=== PATIENT | female | born 1950 | race Caucasian/White ===

== ENCOUNTER 2024-03-14 15:46 | Outpatient (CLI) | payer MEDICARE, SELFPAY | END 2024-03-14 15:47 | disposition home or self-care (01) | PROVIDERS: Visit Provider Physician Assistant Medical | DX: I10 Essential (primary) hypertension (principal); R32 Unspecified urinary incontinence; F32.A Depression, unspecified | CPT/HCPCS: 80053; 84443 ==

== ENCOUNTER 2024-03-15 12:59 | Outpatient (CLI) | payer MEDICARE, SELFPAY | END 2024-03-15 13:00 | disposition home or self-care (01) | LOC: NFLDREF 04-03 12:25 | PROVIDERS: Visit Provider Physician Assistant Medical | DX: R15.9 Full incontinence of feces (principal) | CPT/HCPCS: 87338 ==

== ENCOUNTER 2024-03-22 10:07 | Outpatient (CLI) | payer MEDICARE, SELFPAY ==
--- NOTE | 2024-03-22 11:00 | CRLHL7_ITS ---
For Patients: As a result of the Cures Act, medical imaging exams and procedure reports are released immediately into your electronic medical record. You may view this report before your referring provider. If you have questions, please contact your health care provider. INDICATION: Left lower quadrant abdominal pain; history of bowel incontinence; IBS COMPARISON: None. TECHNIQUE: CT abdomen and pelvis with intravenous contrast; coronal and sagittal reformats. FINDINGS: No abnormal nodular densities through the lung bases. No evidence of pleural effusion. Normal size cardiac silhouette without any evidence of pericardial effusion. No focal hepatic or splenic abnormality. No pancreatic pathology. Gallbladder is unremarkable. No adrenal pathology. No kidney stones or obstructive uropathy. 1.4 cm cortical cyst right kidney. No retroperitoneal lymphadenopathy. No evidence of abdominal or pelvic ascites. Status post hysterectomy. CT of the pelvis is unremarkable. 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 IMPRESSION: Status post hysterectomy. Negative CT abdomen and pelvis with intravenous contrast otherwise. Please note that all CT scans at this facility use dose modulation, iterative reconstruction, and/or weight-based dosing when appropriate to reduce radiation dose to as low as reasonably achievable. Dictated by Zamzam Palacios MD @ 03/23/2024 1:04:21 PM (Electronically Signed)
--- NOTE | 2024-03-22 11:30 | CRLHL7_ITS ---
For Patients: As a result of the Century Cures Act, medical imaging exams and procedure reports are released immediately into your electronic medical record. You may view this report before your referring provider. If you have questions, please contact your health care provider. INDICATION: Smoking history; low-dose screening chest CT. COMPARISON: None. Technique: Low-dose screening chest CT. FINDINGS: No abnormal intrapulmonary nodule densities. No abnormal mediastinal or hilar lymphadenopathy. Coronary artery calcifications. Normal size cardiac silhouette without any pericardial fusion. No evidence of pleural effusion or chest wall pathology. Limited CT through the upper abdomen is unremarkable. IMPRESSION: Lung rads category 1; low-dose screening chest CT in 12 months duration suggested. Please note that all CT scans at this facility use dose modulation, iterative reconstruction, and/or weight-based dosing when appropriate to reduce radiation dose to as low as reasonably achievable. Dictated by Zamzam Palacios MD @ 03/23/2024 12:56:43 PM (Electronically Signed)
== END 2024-03-22 10:08 | disposition home or self-care (01) ==
LOC: CT 10:08
PROVIDERS: PCP Physician Assistant Medical; Visit Provider Physician Assistant Medical
DX: R10.32 Left lower quadrant pain (principal); R15.9 Full incontinence of feces; Z12.2 Encounter for screening for malignant neoplasm of respiratory organs; F17.210 Nicotine dependence, cigarettes, uncomplicated
CPT/HCPCS: 71271; 74177; Q9967

== ENCOUNTER 2024-04-18 12:01 | Outpatient (CLI) | payer MEDICARE, SELFPAY | END 2024-04-18 12:02 | disposition home or self-care (01) | LOC: NFLDREF 04-20 09:22 | PROVIDERS: PCP Physician Assistant Medical; Visit Provider Physician Assistant Medical | DX: R32 Unspecified urinary incontinence (principal); I10 Essential (primary) hypertension | CPT/HCPCS: 87086 ==

== ENCOUNTER 2024-07-11 08:18 | Outpatient (CLI) | payer MEDICARE, SELFPAY | END 2024-07-11 08:19 | disposition home or self-care (01) | PROVIDERS: PCP Physician Assistant Medical; Visit Provider Physician Assistant Medical | DX: Z00.00 Encounter for general adult medical examination without abnormal findings (principal); I10 Essential (primary) hypertension; R53.83 Other fatigue; E78.5 Hyperlipidemia, unspecified; F32.A Depression, unspecified | CPT/HCPCS: 80061; 82306; 82607; 84443 ==

== ENCOUNTER 2024-09-17 12:05 | Outpatient (CLI) | payer MEDICARE, SELFPAY | END 2024-09-17 12:06 | disposition home or self-care (01) | LOC: NFLDREF 09-19 08:56 | PROVIDERS: PCP Physician Assistant Medical; Referring Provider Physician Assistant Medical; Visit Provider Physician Assistant Medical | DX: R53.83 Other fatigue (principal); I10 Essential (primary) hypertension; E55.9 Vitamin D deficiency, unspecified; E78.5 Hyperlipidemia, unspecified; F32.A Depression, unspecified; R61 Generalized hyperhidrosis | CPT/HCPCS: 80061; 80076; 82306 ==

== ENCOUNTER 2025-10-08 12:42 | Outpatient (CLI) | payer MEDICARE, SELFPAY | END 2025-10-08 12:43 | disposition home or self-care (01) | LOC: AMB 10-21 02:55 | PROVIDERS: Visit Provider Family Medicine | DX: R07.89 Other chest pain (principal) | CPT/HCPCS: A0425; A0427 ==